=== PATIENT | male | born 1985 | race Caucasian/White ===

== ENCOUNTER 2016-08-21 06:00 | Emergency (ER) ==
[2016-08-21] MEDS ORDERED: SODIUM CHLORIDE 0.9% INJ ONE (06:35)
[2016-08-21] MEDS ORDERED: ATIVAN IV ONE (06:35)
[2016-08-21] MEDS ORDERED: M.V.I.-12 10 ML, FOLIC ACID 1 MG, MAGNESIUM SULFATE 1 GM, THIAMINE 100 MG in NS 1,000 ML IV ONE (06:35)
[2016-08-21] MEDS ORDERED: PROTONIX IV ONE (06:35)
[2016-08-21] MEDS ORDERED: ZOFRAN IV ONE (06:35)
[2016-08-21 06:36] LABS: MANUAL DIFF NEEDED? NO
[2016-08-21 06:44] LABS: BASO% 0.2 % (0.0-0.8); EOS# 0.06 X1000 (0.0-0.7); EOS% 0.7 % (0.0-10.0); HEMATOCRIT 46.4 % (42.0-52.0); HEMOGLOBIN 16.7 g/dL (14.0-18.0); IMM GRAN# 0.02 X1000 (0.0-0.04); IMM GRAN% 0.2 % (0.0-0.5); LYMPH# 1.71 X1000 (1.2-3.4); LYMPH% 18.6 % (20.5-51.1); MCH 30.1 PG (27-31); MCV 83.8 FL (81-99); MONO% 5.4 % (1.7-9.3); MPV 10.7 FL (7.4-10.4); NEUT% 74.9 % (42.2-75.2); PLT 235 X1000 (130-400); RBC 5.54 XMIL (4.7-6.1)
[2016-08-21 07:06] LABS: AGAP 17; ALBUMIN 5.6 g/dL (3.5-5.0); ALKALINE PHOSPHATASE 53 U/L (32-122); AMYLASE 67 U/L (20-200); BUN 12 mg/dL (8-22); CALCIUM 10.4 mg/dL (8.8-10.2); CHLORIDE 99 mmol/L (98-107); COSMO 280; GOT 22 U/L (10-34); GPT 16 U/L (10-44); LIPASE 36 U/L (13-60); POTASSIUM 3.8 mmol/L (3.5-5.1); SODIUM 140 mmol/L (136-145); TCO2 24 mmol/L (25-35); TOTAL PROTEIN 8.3 g/dL (6.3-8.3)
[2016-08-21 07:09] LABS: URINE SOURCE VOIDED
[2016-08-21 07:21] LABS: UR AMPHETAMINES QUAL NONE DETECTED (NONE DETECT); UR BARBITUATES QUAL NONE DETECTED (NONE DETECT); UR BENZODIAZEPIN QUAL NONE DETECTED (NONE DETECT); UR CANNABINOIDS QUAL PRESUMPTIVE POSITIVE (NONE DETECT); UR COCAINE QUAL NONE DETECTED (NONE DETECT); UR MDMA QUAL NONE DETECTED (NONE DETECT); UR METHADONE QUAL PRESUMPTIVE POSITIVE (NONE DETECT); UR METHAMPHETAMINE QUAL NONE DETECTED (NONE DETECT); UR OPIATES QUAL NONE DETECTED (NONE DETECT); UR OXYCODONE QUAL NONE DETECTED (NONE DETECT); UR PCP QUAL NONE DETECTED (NONE DETECT); UR TCA QUAL NONE DETECTED (NONE DETECT)
[2016-08-21 07:33] LABS: BILIRUBIN URINE NEGATIVE (NEGATIVE); BLOOD URINE TRACE (NEGATIVE); CLARITY CLEAR (CLEAR); COLOR YELLOW; GLUCOSE URINE NEGATIVE (NEGATIVE); LEUKOCYTES URINE TRACE (NEGATIVE); NITRITE URINE NEGATIVE (NEGATIVE); PROTEIN URINE 1+(30 mg/dL) mg/dL (NEGATIVE); SP GRAVITY URINE 1.025; UROBILINOGEN URINE 1+(1 mg/dL)
[2016-08-21 07:48] LABS: URINE EPITHELIAL CELLS >10 /HPF (<10); URINE RBC <10 /HPF (<10); URINE WBC <10 /HPF (<10)
[2016-08-21 07:49] LABS: URINE CRYSTAL CA OXALATE PRESENT /HPF; URINE CULTURE PL NEEDED? YES
[2016-08-21] MEDS ORDERED: NS 1,000 ML IV ONE (07:57)
--- NOTE | 2016-08-21 08:03 | PROVIDER DOCUMENTATION ---
HPI-Abdominal Pain/GI Problem - General Chief Complaint: Nausea/Vomiting Stated Complaint: VOMITING Time Seen by Provider: 08/21/16 06:24 Source: patient Allergies/Adverse Reactions: Patient Allergies Allergy/AdvReac Type Severity Reaction Status Date / Time promethazine HCl * Allergy Severe SEIZURE Verified 08/21/16 06:09 [From Phenergan] cyclobenzaprine HCl * AdvReac Mild RESTLESS Verified 08/21/16 06:09 [From Flexeril] LEGS Home Medications: Home Medication List Medication Instructions Recorded Confirmed Last Taken Type Ondansetron [Zofran Odt] 8 mg PO Q6-8H PRN PRN #20 //16 08/21/16 Unknown Rx tab.rapdis Chlordiazepoxide [Librium] 25 mg PO Q6HR #10 capsule 08/21/16 Unknown Rx Ondansetron Odt [Zofran 4 mg Odt] 4 mg PO Q6H PRN PRN #20 tablet 08/21/16 Unknown Rx Pantoprazole [Protonix] 40 mg PO DAILY@0700 #30 tablet 08/21/16 Unknown Rx - History of Present Illness-ABD Nature of Presenting Problems: pt w/abdom cramping ,nausea and vomiting 1 week after stop using lortab and methadone,,,,feeling weak and anxious Abdominal Pain Onset Location: reports: epigastric, periumbilical, generalized abdomen Pain Radiation: reports: periumbilical Quality of Pain: reports: cramping Severity in ED: reports: moderate Onset/Duration: reports: 1 week ago Timing: reports: intermittent, changing over time Associated Symptoms: reports: anxiety, dizziness, headaches, heartburn, joint pain, muscle aches, vomiting. denies: diarrhea, shortness of breath, pain with inspiration, trouble walking Last BM: 24 hours ago Dark Stools Present?: reports: none noticed Rectal Bleeding: reports: none Bruising or Bleeding Gums?: No Similar Symptoms Previously?: Yes Review of Systems - Adult - REVIEW OF SYSTEMS - ADULT Constitutional: reports: see HPI All Other Systems: Reviewed and Negative Past History - Adult - PAST MEDICAL HISTORY-ADULT Review of Records: reports: Old Records Reviewed, Nursing Assessment Review, Medications Reviewed, Social history reviewed & non-contributory. Major Childhood Illnesses: reports: denies history Cardiovascular: reports: denies history Respiratory: reports: denies history Gastrointestinal: reports: denies history Obstetrical/Gynecological: reports: denies history Genitourinary: reports: denies history Musculoskeletal: reports: denies history Neurological: reports: denies history Endocrine/Immune: reports: denies history Other Conditions: reports: denies history - PRIOR SURGERIES/PROCEDURES Surgical/Procedure History: reports: tonsillectomy - PRIOR HOSPITALIZATIONS Prior Hospitalizations: reports: for similar symptoms - IMMUNIZATION STATUS Childhood Immunizations: See Nurse Assessment Flu Vaccine: See Nurse Assessment - FAMILY HISTORY Family History: reviewed, not pertinent - SOCIAL HISTORY Smoking: less than 1 pack/day Provider spent 3-5 mins advising pt. on dangers of tobacco.: Discussed manners to quit use, and f/u contacts for add'l counseling. Substance Use: opiates, other Alcohol Use Frequency: 1 or 2 times last year Living Situation: family Physical Exam-General - PHYSICAL EXAM-ADULT Initial Vital Signs Reviewed: Yes - CONSTITUTIONAL General Appearance: alert, no apparent distress, thin, anxious - EYES Eyes: PERRL/EOMI - HEAD, EARS, NOSE, MOUTH & THROAT HENMT: normocephalic/atraumatic, TMs normal, pharynx normal, other (dry oral membranes) - NECK Neck: non-tender, full range of motion, supple, normal inspection - RESPIRATORY Respiratory: chest non-tender, lungs clear, normal breath sounds, no pleuratic chest pain, no respiratory distress, no accessory muscle use - CARDIOVASCULAR Cardiovascular: normal peripheral pulses, regular rate, rhythm, no edema - GASTROINTESTINAL (ABDOMEN) Abdominal Exam: normal bowel sounds, soft, no organomegaly, no pulsatile mass, tenderness (mild epigastric) - MUSCULOSKELETAL Back Exam: normal inspection, no CVA tenderness Extremity: normal range of motion, non-tender, normal gait, normal inspection, no pedal edema DTR: bicep (R): 2+, bicep (L): 2+, ankle (R): 2+, ankle (L): 2+ - SKIN Integumentary: normal color, normal turgor, warm/dry - NEUROLOGIC Neurologic: accounts payable clerk II-XII nml as tested, grossly normal, no motor/sensory deficits - PSYCHIATRIC Psych/Mental Status: normal mood/affect, normal thought content, oriented x 3 Departure - Departure Time of Disposition Order: 08:02 DIAGNOSIS: Opiate addiction, Dehydration, mild, Vomiting Disposition: HOME 01 Certified Medical Emergency: Emergent Condition: Stable Additional Instructions: ED Follow Up Instructions:when ready go to opd rehab or detox center You have been treated by a care provider in the Emergency Department. These instructions are being provided to you so you can have an understanding of how to care for yourself upon discharge. Upon discharge from the Emergency Department, you are responsible for making arrangements for follow-up care by a physician of your choice. Take all prescribed medications as directed. Return to the Emergency Department immediately for any new or worsening symptoms. You may call the Physician Referral phone number at [phone] to obtain a list of Physicians who are taking new patients. Prescriptions: Chlordiazepoxide [Librium] 25 mg PO Q6HR #10 capsule Pantoprazole [Protonix] 40 mg PO DAILY@0700 #30 tablet Ondansetron Odt [Zofran 4 mg Odt] 4 mg PO Q6H PRN PRN #20 tablet PRN Reason: Nausea And Vomiting
[2016-08-21 11:15] VITALS: BP 133/75
[2016-08-22 10:32] LABS: HEPATITIS PROFILE ACUTE SEE COMMENTS (())
== END 2016-08-21 11:15 | disposition home or self-care (01) ==
LOC: P.ED 06:00
DX: E86.0 Dehydration (principal); R11.2 Nausea with vomiting, unspecified; F11.20 Opioid dependence, uncomplicated; R53.1 Weakness; R10.13 Epigastric pain; R10.33 Periumbilical pain; R10.84 Generalized abdominal pain; R42 Dizziness and giddiness; R51 Headache; R12 Heartburn; M79.1 Myalgia; R10.816 Epigastric abdominal tenderness; F17.210 Nicotine dependence, cigarettes, uncomplicated; Z71.6 Tobacco abuse counseling
CPT/HCPCS: 80053; 80074; 80305; 81001; 82140; 82150; 82948; 83690; 85025; 87088; C9113; G0480; J2060; J2405; J3411; J3475; J7030; 80324; S0164